=== PATIENT | female | born 1980 | race Two or more races ===

== ENCOUNTER 2021-09-10 03:36 | Inpatient (IN) | payer OTHER ==
[~2021-09-10] VITALS: Ht 157.5 cm; Wt 84.4 kg
--- NOTE | 2021-09-10 04:22 | NUR ---
PATIENT CAME TO THE ER BED 6 BIBMOM C/O SOB SINCE 1x WEEK AGO. ALSO C/O CHILLS AND BODYACHES SINCE 1x WEEK AGO. BREATHING ON ROOM AIR AT 93%. PATIENT PLACED ON 2L VIA N/C WITH HIGH WYATT'S POSITION AT 98%. PATIENT IS ALERT AND ORIENTED xx4. CONNECTED TO THE MONITOR.
--- NOTE | 2021-09-10 04:22 | NUR ---
BLOOD AND COVID RAPID TEST COLLECTED AND SENT TO THE LAB.
[2021-09-10 04:33] LABS: BASOPHILS # (AUTO) 0.1 K/uL (0.0-0.2); EOSINOPHILS % (AUTO) 1.3 % (0.0-6.0); HEMATOCRIT 42 % (33-45); HEMOGLOBIN 14.1 g/dL (11.5-14.8); LYMPHOCYTES # (AUTO) 2.5 K/uL (0.8-4.8); LYMPHOCYTES % (AUTO) 42.6 % (20.0-44.0); MEAN CORPUSCULAR HGB CONC 33 g/dl (31.0-36.0); MEAN CORPUSCULAR VOLUME 95 fL (82-100); MONOCYTES # (AUTO) 0.5 K/uL (0.1-1.30); MONOCYTES % (AUTO) 7.7 % (2.0-12.0); NEUTROPHILS # (AUTO) 2.8 K/uL (1.8-8.9); NEUTROPHILS % (AUTO) 47.4 % (43.0-81.0); PLATELET COUNT (AUTO) 149 K/uL (150-450); RED BLOOD CELL COUNT(AUTO) 4.48 MIL/uL (4.0-5.2); WHITE BLOOD COUNT (AUTO) 5.9 K/uL (4.3-11.0)
[2021-09-10 04:36] LABS: BILIRUBIN,URINE NEGATIVE (NEGATIVE); COLOR,URINE YELLOW (YELLOW); LEUKOCYTE ESTERASE ,URINE NEGATIVE (NEGATIVE); NITRITE, URINE NEGATIVE (NEGATIVE); PH,URINE 6.5 (5.0-8.0); PROTEIN,URINE TRACE mg/dl (NEGATIVE); UGLUCOSE NEGATIVE (NEGATIVE); UROBILINOGEN,URINE 0.2 EU/dL (0.2)
[2021-09-10 04:53] LABS: CALCIUM, SERUM 8.7 mg/dL (8.5-10.1); CARBON DIOXIDE 23 mmol/L (21-32); CHLORIDE 102 mmol/L (98-107); CREATININE 0.6 mg/dL (0.6-1.3); GLUCOSE 91 mg/dL (74-106); POTASSIUM 3.5 mmol/L (3.5-5.1); SODIUM SERUM 140 mmol/L (136-145); UREA NITROGEN, BLOOD 4 mg/dL (7-18)
[2021-09-10] MEDS ORDERED: hydrALAZINE HCL IV 20 MG VIAL ONE ×2 (04:59→06:37)
[2021-09-10] MEDS ORDERED: hydrALAZINE HCL IV 20 MG VIAL IV ONE ×2 (05:30→06:30)
[2021-09-10] MEDS ORDERED: IV NS 0.9% 1,000 ML BAG IV ONE (06:00)
[2021-09-10 06:16] LABS: ABG BASE EXCESS -2.1 mmol/L; ABG OXYGEN SATURATION 98.5 % (92.0-98.5); ABG PCO2 26.5 mmHg (35.0-45.0); ABG PH 7.488 (7.350-7.450); ABG PO2 151.9 mmHg (75.0-100.0); MetHb 0.6 % (0.0-1.5); O2Hb 97.9 % (94.0-97.0); SITE, ABG Other; VENT MODE, BG Nasal Cannula
--- NOTE | 2021-09-10 06:22 | NUR ---
RT AT BEDSIDE FOR BREATHING TREATMENT
[2021-09-10] MEDS ORDERED: IPRATROPIUM NEB FS 0.5 MG/2.5 ML AMPUL.NEB NEB ONE (06:30)
[2021-09-10] MEDS ORDERED: IPRATROPIUM NEB FS 0.5 MG/2.5 ML AMPUL.NEB ONE (06:35)
[2021-09-10] MEDS ORDERED: IV NS 0.9% 250 ML IV ONE (07:24)
[2021-09-10] MEDS ORDERED: CT SWABBABLE VALVE TRANS SET 1 EA INFUS.SET MC ONE (07:24)
[2021-09-10] MEDS ORDERED: IOHEXOL-350 100 ML VIAL IV ONE (07:24)
--- NOTE | 2021-09-10 07:58 | NUR ---
PANEL ON-CALL PAGED
[2021-09-10] MEDS ORDERED: MORPHINE SULFATE INJ 2 MG/ML DISP.SYRIN IV PRN (09:00)
[2021-09-10] MEDS ORDERED: MAGNESIUM HYDROXIDE 30 ML UDC PO PRN (09:00)
[2021-09-10] MEDS ORDERED: ALBUTEROL FS 2.5 MG/3 ML VIAL.NEB NEB PRN (09:00)
[2021-09-10] MEDS ORDERED: ONDANSETRON HCL/PF 4 MG/2 ML VIAL IVP PRN (09:00)
[2021-09-10] MEDS ORDERED: Z GUARD REMEDY 2 OZ OINT TP PRN (09:00)
[2021-09-10] MEDS ORDERED: MAG HYDROX/AL HYDROX/SIMETH 30 ML UDC PO PRN (09:00)
[2021-09-10] MEDS ORDERED: TEMAZEPAM 15 MG CAPSULE PO PRN (09:00)
--- NOTE | 2021-09-10 09:35 | NUR ---
BED 108
--- NOTE | 2021-09-10 09:53 | NUR ---
report given to Ambreen TAYLOR for ibrahima.
--- NOTE | 2021-09-10 10:10 | NUR ---
wheeled patient via gurney accompanied by rn and emt in no distress. Ambreen RN at bedside to assume care.
[2021-09-10 10:15] VITALS: BP 160/103
--- NOTE | 2021-09-10 10:30 | NUR ---
CLOTH CALENDER NOTE RECEIVED PATIENT FROM ER WITH DX HYPOXIA UNDER CARE DR JAMISON , PATENT ALERT ORIENTED , PLACED ON TELE SR HR 96 , ON 2L NC SATURATION 985 , LT FA AND LT AC HL INTACT AND FLUSHED WELL , BED IN LOWEST AND LOCKED POSITION , PLAN OF CARE DISCUSSED WITH PATIENT , BELONGING CHECKED , CALL LIGHT WITHIN REACH, WILL CONT TO MONITOR
[2021-09-10] MEDS: methylPREDNISolone SOD SUCC 125 MG/2ML VIAL IV SCH ×3 (10:54→21:01)
[2021-09-10] MEDS: ENOXAPARIN SODIUM 40 MG/0.4 ML DISP.SYRIN SQ SCH (10:57)
[2021-09-10] MEDS: ESCITALOPRAM OXALATE (10 MG) 10 MG TABLET PO SCH (11:04)
[2021-09-10] MEDS: IV NS 0.9% 1,000 ML IV PRN (11:44)
--- NOTE | 2021-09-10 11:57 | NUR ---
TRAILER BODY ASSEMBLER NOTE UA COLLECTED ORDERED
[2021-09-10] MEDS: hydrALAZINE HCL IV 20 MG VIAL IV PRN ×2 (13:01→20:04)
--- NOTE | 2021-09-10 15:31 | NUR ---
SS received call from pt.'s nurse statign patient has requested VERIFICATION OF ADMISSION letter for work purposes. Noted. SW will follow up.
--- NOTE | 2021-09-10 15:44 | NUR ---
OPERATIONS EXAMINER NOTES PER DOCTOR SHAHEEN IS OK TO ORDER FLUE VACCINE UPON DISCHARGE, SPOKE TO PREDICTIVE MAINTENANCE TECHNICIAN MG, PT IS REQUESTING EXCUSE NOT FOR HER JOB
[2021-09-10 16:00] VITALS: BP 161/99
[2021-09-10] MEDS: ACETAMINOPHEN 325 MG TABLET PO PRN (17:32)
--- NOTE | 2021-09-10 17:33 | NUR ---
telephone operators supervisor note c\o headache Tylenol po given as ordered will monitor, [id number]
--- NOTE | 2021-09-10 18:28 | NUR ---
SCIENTIFIC INFORMATICS LEADER NOTES PT IN BED, NO SIGNS OF SOB AT THIS TIME O2ON AND OFF AT THIS TIME SAT 96% ON 2L . INDEPENDENT WITH FEEDING ON IV FLUIDS SAFETY MEASUREMENTS IMPLEMENTED BED LOCKED IN ITS LOWEST POSITION AND CALL LIGHT WITHIN REACH.
[2021-09-10] MEDS: ALBUTEROL HALF STRENGTH 1.25 MG/3 ML VIAL.NEB NEB SCH ×3 (19:30→23:23)
[2021-09-10] MEDS: IPRATROPIUM NEB FS 0.5 MG/2.5 ML AMPUL.NEB NEB SCH ×3 (19:30→23:23)
--- NOTE | 2021-09-10 19:42 | NUR ---
RN NOTE PATIENT IN BED, AWAKE AND ALERT. ORIENTED X4. HEAD OF BED ELEVATED. ON O2 3L VIA NASAL CANNULA, PATIENT TAKES O2 ON AND OFF. NO S/S OF RESPIRATORY DISTRESS. COMPLAINED OF MILD HEADACHE, RELIEVED BY TYLENOL FROM PREVIOUS SHIFT. 500CC YELLOW URINE OUTPUT. NOTED.IV ACCESS OF LEFT FA #20 RUNNING NS @ 75ML/HR. KEPT COMFORTABLE. BED LOCKED AND IN LOWEST POSITION. SAFETY MEASURES MAINTAINED. CALL LIGHT WITHIN REACH.
[2021-09-10 20:00] VITALS: BP 167/113
--- NOTE | 2021-09-10 20:02 | NUR ---
1929 albuterol and atrovent breathing tx not administered due to pending pcr result. rn notified
[2021-09-10] MEDS: LORAZEPAM 1 MG TABLET PO PRN (21:02)
--- NOTE | 2021-09-10 23:23 | NUR ---
1929 albuterol and atrovent breathing tx not administered due to pending pcr result. rn notified
[2021-09-11] VITALS: BP 151/92
[2021-09-11] MEDS: IV NS 0.9% 1,000 ML IV PRN ×2 (02:59→20:27)
[2021-09-11] MEDS: ACETAMINOPHEN 325 MG TABLET PO PRN ×2 (03:05→13:52)
[2021-09-11] MEDS: IPRATROPIUM NEB FS 0.5 MG/2.5 ML AMPUL.NEB NEB SCH ×6 (03:30→23:15)
[2021-09-11] MEDS: ALBUTEROL HALF STRENGTH 1.25 MG/3 ML VIAL.NEB NEB SCH ×6 (03:30→23:15)
--- NOTE | 2021-09-11 03:36 | NUR ---
0330 albuterol and atrovent breathing tx not administered due to pending pcr result. rn notified
[2021-09-11 04:00] VITALS: BP 158/99
--- NOTE | 2021-09-11 04:04 | NUR ---
RN NOTE NOTIFIED TONG SINCLAIR PATIENT'S ADMITTING DX: HYPOXIA RESP FAILURE; HYPERTENSIVE URGENCY AND HAS ORDER FOR MEDSURG. ORDERS TO PUT PATIENT TELEMETRY STATUS. NOTED.
[2021-09-11] MEDS: methylPREDNISolone SOD SUCC 125 MG/2ML VIAL IV SCH ×2 (05:00→12:10)
[2021-09-11 06:51] LABS: BASOPHILS % (AUTO) 0.1 % (0.0-2.0); HEMATOCRIT 42 % (33-45); HEMOGLOBIN 13.7 g/dL (11.5-14.8); LYMPHOCYTES # (AUTO) 0.9 K/uL (0.8-4.8); MEAN CORPUSCULAR HGB CONC 33 g/dl (31.0-36.0); MEAN CORPUSCULAR VOLUME 95 fL (82-100); MONOCYTES # (AUTO) 0.2 K/uL (0.1-1.30); MONOCYTES % (AUTO) 2.4 % (2.0-12.0); NEUTROPHILS # (AUTO) 6.2 K/uL (1.8-8.9); NEUTROPHILS % (AUTO) 84.5 % (43.0-81.0); PLATELET COUNT (AUTO) 143 K/uL (150-450); RED BLOOD CELL COUNT(AUTO) 4.37 MIL/uL (4.0-5.2); WHITE BLOOD COUNT (AUTO) 7.3 K/uL (4.3-11.0)
[2021-09-11 06:52] LABS: CALCIUM, SERUM 8.8 mg/dL (8.5-10.1); CREATININE 0.5 mg/dL (0.6-1.3); MAGNESIUM 2.1 mg/dL (1.8-2.4); PHOSPHORUS 4.1 mg/dL (2.5-4.9); POTASSIUM 3.7 mmol/L (3.5-5.1)
--- NOTE | 2021-09-11 06:53 | NUR ---
RN NOTE PATIENT RESTING IN BED, ALERT AND ORIENTED X4. ON O2 3L VIA NASAL CANNULA, NO S/S OF RESPIRATORY DISTRESS. ADMINISTERED TYLENOL X1 FOR HEADACHE AND ATIVAN 1 MG X1 FOR ANXIETY OVERNIGHT, WITH RELIEF. IV ACCESS OF LEFT FA #20 RUNNING NS @ 75ML/HR. ALL NEEDS ATTENDED PROMPTLY. BED LOCKED AND IN LOWEST POSITION. SAFETY MEASURES MAINTAINED. CALL LIGHT WITHIN REACH. WILL ENDORSE TO AM SHIFT.
[2021-09-11 07:14] LABS: THYROID STIMULATING HORMONE 0.352 uIU/mL (0.358-3.74)
--- NOTE | 2021-09-11 07:47 | NUR ---
RN NOTE PATIENT IS IN BED WITH HOB AT SEMI FOWLERS POSITION. PATIENT IS ON 3L NC WITH NO SIGNS OF LABORED BREATHING. PATIENT IS AOX4. LFA 20G IS PATENT AND INTACT. BED IS LOCKED IN THE LOWEST POSITION, 3 GUARD RAILS RAISED, CALL ZULETA WITHIN REACH, AND ALL HOSPITAL SAFETY PRECAUTIONS ARE BEING FOLLOWED. WILL CONTINUE TO MONITOR THROUGHOUT SHIFT.
[2021-09-11 08:00] VITALS: BP 150/88
[2021-09-11] MEDS: PANTOPRAZOLE 40 MG TABLET.DR PO SCH (08:41)
[2021-09-11] MEDS: ESCITALOPRAM OXALATE (10 MG) 10 MG TABLET PO SCH (08:42)
[2021-09-11] MEDS: ENOXAPARIN SODIUM 40 MG/0.4 ML DISP.SYRIN SQ SCH (08:43)
[2021-09-11 12:00] VITALS: BP 158/90
[2021-09-11 16:00] VITALS: BP 158/93
[2021-09-11] MEDS: LORAZEPAM 1 MG TABLET PO PRN (18:03)
--- NOTE | 2021-09-11 18:45 | NUR ---
RN NOTE PATIENT IS IN BED WITH HOB AT SEMI FOWLERS POSITION. PATIENT IS ON 3L NC WITH NO SIGNS OF LABORED BREATHING. PATIENT IS AOX4. LFA 20G IS PATENT AND INTACT. BED IS LOCKED IN THE LOWEST POSITION, 3 GUARD RAILS RAISED, CALL ZULETA WITHIN REACH, AND ALL HOSPITAL SAFETY PRECAUTIONS ARE BEING FOLLOWED. ALL DUE MEDS GIVEN AND PATIENT REMAINED STABLE THROUGHOUT SHIFT. WILL ENDORSE TO RECREATIONAL THERAPY AIDE RN.
--- NOTE | 2021-09-11 19:30 | NUR ---
RN NOTE RECEIVED PATIENT IN BED. A/OX4. TOLERATING ROOM AIR AT THIS TIME. RESPIRATIONS ARE EVEN AND UNLABORED. NO S/S SOB NOTED. NO C/O PAIN AT THIS TIME. IN NO APPARENT DISTRESS. TELE MONITOR READS SINUS TACHYCARDIA HR 102. IV ACCESS IN LFA#20 RUNNING NS @75ML/HR. PATIENT REQUEST RESTORIL FOR SLEEP. BED IS LOW AND LOCKED, HOB ELEVATED IN SEMI FOWLERS, SIS DE RIALS UP X2, CALL LIGHT WITHIN REACH.
[2021-09-11 20:00] VITALS: BP 159/94
--- NOTE | 2021-09-11 20:34 | NUR ---
BREATHING TX NOT GIVEN DUE TO PENDING PCR COVID TEST. NO RESPIRATORY DISTRESS NOTED AT THIS TIME. BRANDON HERNÁNDEZ NOTIFIED
[2021-09-12] MEDS: ALBUTEROL HALF STRENGTH 1.25 MG/3 ML VIAL.NEB NEB SCH ×3 (03:14→11:15)
[2021-09-12] MEDS: IPRATROPIUM NEB FS 0.5 MG/2.5 ML AMPUL.NEB NEB SCH ×3 (03:14→11:15)
[2021-09-12 04:00] VITALS: BP 170/106
[2021-09-12] MEDS: hydrALAZINE HCL IV 20 MG VIAL IV PRN (04:53)
--- NOTE | 2021-09-12 06:36 | NUR ---
RN NOTE PATIENT RESTING IN BED. A/OX4. REMAINS TOLERATING ROOM AIR AT THIS TIME. NO RESP DISTRESS. NO PAIN. NO DISTRESS. IV IN LFA#20 RUNNING NS @75ML/HR. COLLECTED URINE FOR HCG. BED REMAINS LOW AND LOCKED, HOB ELEVATED IN SEMI FOWLERS, SIDE RIALS UP X2, CALL LIGHT WITHIN REACH. WILL ENDORSE TO ONCOMING SHIFT.
[2021-09-12 06:39] VITALS: BP 145/99
[2021-09-12 06:48] LABS: EOSINOPHILS % (AUTO) 0.1 % (0.0-6.0); HEMATOCRIT 42 % (33-45); LYMPHOCYTES # (AUTO) 2.8 K/uL (0.8-4.8); LYMPHOCYTES % (AUTO) 27.3 % (20.0-44.0); MEAN CORPUSCULAR HGB CONC 33 g/dl (31.0-36.0); MEAN CORPUSCULAR VOLUME 95 fL (82-100); MONOCYTES # (AUTO) 0.8 K/uL (0.1-1.30); MONOCYTES % (AUTO) 7.4 % (2.0-12.0); NEUTROPHILS # (AUTO) 6.7 K/uL (1.8-8.9); NEUTROPHILS % (AUTO) 65.2 % (43.0-81.0); PLATELET COUNT (AUTO) 136 K/uL (150-450); RED BLOOD CELL COUNT(AUTO) 4.44 MIL/uL (4.0-5.2); WHITE BLOOD COUNT (AUTO) 10.3 K/uL (4.3-11.0)
--- NOTE | 2021-09-12 07:18 | NUR ---
RT HHN tx not given due to pending PCR, no SOB or respiratory distress noted.
[2021-09-12 07:25] LABS: CALCIUM, SERUM 8.3 mg/dL (8.5-10.1); CREATININE 0.5 mg/dL (0.6-1.3); POTASSIUM 3.5 mmol/L (3.5-5.1)
[2021-09-12 08:00] VITALS: BP 149/97
[2021-09-12] MEDS: ENOXAPARIN SODIUM 40 MG/0.4 ML DISP.SYRIN SQ SCH (08:12)
[2021-09-12] MEDS: ESCITALOPRAM OXALATE (10 MG) 10 MG TABLET PO SCH (08:13)
[2021-09-12] MEDS: PANTOPRAZOLE 40 MG TABLET.DR PO SCH (08:13)
[2021-09-12] MEDS: IV NS 0.9% 1,000 ML IV PRN (08:29)
[2021-09-12] MEDS ORDERED: ALBU8.5H8 INH (09:13)
[2021-09-12] MEDS ORDERED: ESCI10TA PO (09:13)
[2021-09-12] MEDS ORDERED: INFLUENZA VACCINE 2021-22 0.5 ML DISP.SYRIN IM ONE (12:30)
--- NOTE | 2021-09-12 16:25 | NUR ---
SS Note : SRINIVASAN was provided pt.'s sister, Grace [phone] phone number. SRINIVASAN called Grace to gather collateral information. Grace informed SRINIVASAN that pt. resides at [[address] [facility] [address] [facility] [address]; [phone]]. Grace stated that the pt. verbalizes SI to her father in June 2020. Per Grace she vora not know for sure if this was a suicide attempt but she suspects it was. Grace stated that she called paramedics for welfare check after she has not heard from her sister for 2 days. Per Grace, she and her sister, speak daily. Grace also reported that pt. has an 11 year old son who resides with her or at times with his father. Child was at fathers home when pt. OD. Per Pt.s sister, the trini father is the pt. s drug dealer for Fentanyl. SRINIVASAN will follow up and make DCFS report. SRINIVASAN will interview pt. when she is awake, and oriented.
== END 2021-09-12 12:16 | disposition home or self-care (01) | DRG 865 ==
LOC: ER 03:41 → TELE1 09:49 → MEDSG1 09-11 15:24
PROVIDERS: ADMIT Nurse Practitioner Acute Care; ATTEND Family Medicine
DX: B34.9 Viral infection, unspecified (principal); J96.01 Acute respiratory failure with hypoxia; E66.2 Morbid (severe) obesity with alveolar hypoventilation; J45.901 Unspecified asthma with (acute) exacerbation; Z86.2 Personal history of diseases of the blood and blood-forming organs and certain disorders involving the immune mechanism; I16.0 Hypertensive urgency; Z20.822 Contact with and (suspected) exposure to COVID-19; Z87.09 Personal history of other diseases of the respiratory system; E66.9 Obesity, unspecified; Z88.0 Allergy status to penicillin; F32.A Depression, unspecified; F41.1 Generalized anxiety disorder; F41.0 Panic disorder [episodic paroxysmal anxiety]; F43.9 Reaction to severe stress, unspecified; Z68.34 Body mass index [BMI] 34.0-34.9, adult
CPT/HCPCS: 36415; 36600; 71045-TC; 80048-TC; 80061-TC; 83605-TC; 83735-TC; 83880; 84100-TC; 84443-TC; 84484-TC; 84703-TC; 85025-TC; 85378-TC; 87081-TC; C9803; G0378; J0360; J1650; J2930; J7030; J7050; Q2036; Q9967; U0003